=== PATIENT | female | born 1995 | race Caucasian/White ===

== ENCOUNTER 2022-10-24 15:15 | Outpatient (RCR) | payer MEDICAID ==
[~2022-10-24 15:15] MED LIST: ACETAMINOPHEN W1 TA6 PO; AMOXICILLIN 8751 TAB PO; ATARAX 25MG25 MG/TAB PO; BIRTH CONTROL PILLS; FLEXERIL 1010 MG/TAB PO; IBU600 MG PO; MOTRIN 600600 MG/TAB PO; NATURAL IRON65 MG; NO HOME MEDICATIONS; PERCOCET 325 MG1 TA2 PO; PREDNISONE20 MG PO; PRENATAL; PRENATAL1 TA7 PO; SLOW FE142 MG PO; ZYRTEC 10MG10 MG PO
== END 2022-11-09 | disposition home or self-care (01) ==
LOC: MKS.ESL.PT
DX: M25.561 Pain in right knee (principal); Z98.890 Other specified postprocedural states